=== PATIENT | female | born 1970 | race Caucasian/White ===

== ENCOUNTER 2018-05-28 11:46 | Emergency (ER) | payer SELFPAY ==
[~2018-05-28] VITALS: Ht 175.3 cm; Wt 69.9 kg
--- NOTE | 2018-05-28 11:55 | NUR ---
PT TO ER BED 6
[2018-05-28 12:01] VITALS: BP 137/69
--- NOTE | 2018-05-28 12:01 | NUR ---
PT BIB FAMILY C/O FEVER CHILLS X2 DAYS, CONSTANT BILATERAL STINGING FOOT PAIN AT 8/10, THROAT PAIN WITH SWALLOWING, AND SWOLLEN LIPS. PT DENEIS N/V/D. RR EVEN, NON-LABORED, LUNG SOUNDS CLEAR, AIRWAY PATENT, VOICE CLEAR. MEDHX:PANCREATITIS RX:NONE
[2018-05-28] MEDS ORDERED: KETOROLAC 30 MG/ML VIAL IM ONE (12:25)
[2018-05-28] MEDS ORDERED: LIDOCAINE VISCOUS 2% 20 ML UDC PO ONE (12:30)
[2018-05-28 12:59] VITALS: BP 137/69
--- NOTE | 2018-05-28 12:59 | NUR ---
Patient discharged with v/s stable. Written and verbal after care instructions given and explained. Patient alert, oriented and verbalized understanding of instructions. Ambulatory with steady gait. All questions addressed prior to discharge. ID band removed. Patient advised to follow up with PMD. Rx of benadryl and naprosyn given. Patient educated on indication of medication including possible reaction and side effects. Opportunity to ask questions provided and answered.
== END 2018-05-28 12:59 | disposition home or self-care (01) ==
LOC: MED 11:46
DX: J20.9 Acute bronchitis, unspecified (principal); Z90.49 Acquired absence of other specified parts of digestive tract
CPT/HCPCS: 96372; 99283; J1885